=== PATIENT | female | born 1950 | race Caucasian/White ===

== ENCOUNTER 2017-02-18 13:10 | Day surgery (SDC) | payer MEDICARE ==
[~2017-02-18 13:10] MED LIST: Kenalog-40 IM ONE; Lactated Ringers IV ONE; Sensorcaine 0.25% 10 ML IJ ONE
--- NOTE | 2017-02-18 16:35 | XRAY ---
16 seconds of fluoroscopy was used in surgery for a right MBB L3-S1.
[2017-02-18] MEDS ORDERED: DIPRIVAN 200 MG/20 ML IV ONE (16:37)
--- NOTE | 2017-02-18 16:38 | XRAY ---
Indication: Right L3-S1 MBB. Intraoperative fluoroscopy was provided for 16 seconds. Single digital spot image submitted for interpretation demonstrates 4 posterior spinal needles with the tips projecting adjacent to the right L3-S1 superior facets. Incidental L4-S1 bilateral posterior spinal hardware. Correlate with intraoperative findings/report.
== END 2017-02-18 15:25 | disposition home or self-care (01) ==
LOC: SDC-PAIN 13:10
PROVIDERS: ATTEND Pain Medicine Interventional Pain Medicine
DX: M47.816 Spondylosis without myelopathy or radiculopathy, lumbar region (principal); M54.16 Radiculopathy, lumbar region; M48.06 Spinal stenosis, lumbar region; M96.1 Postlaminectomy syndrome, not elsewhere classified; M70.60 Trochanteric bursitis, unspecified hip
CPT/HCPCS: 64493; 64494; 64495; 72020; 77003; J2704; J3301

== ENCOUNTER 2017-02-26 18:57 | Emergency (ER) | payer MEDICARE ==
[2017-02-26] MEDS ORDERED: D50W 50 ml Abboject IV ONE (19:12)
--- NOTE | 2017-02-26 19:19 | ERPHSYRPT ---
- History of Present Illness Time Seen by Provider: 02/26/17 19:05 Source: patient, EMS Exam Limitations: no limitations Patient Subjective Stated Complaint: PT BROUGHT IN BY EMS PER EMS PT IS AN INSULIN DEPENDENT. DIABETIC AND UNSURE WHEN SHE TOOK HER LAST DOSE OF INSULIN. PER EMS PT FAMILY FOUND PT UNRESPONSIVE WITHA BAG OF SKITTLES BESIDE HER. PER EMS PT WAS INITIAL FSBS WAS 20 NO IV ACCESS GIVEN 1 MG OF GLUCAGON IM ONLY BROUGHT SUGAR UP TO 40 Triage Nursing Assessment: PT RESPONSIVE TO PAINFUL STIMULI ONLY DIAPHORETIC. 22 GI N RIGHT HAND BY James DALTON FSBS ON ARRIVAL 61 VERBAL. ORDER GIVEN TO GIVE 1 AMP OF D50 Physician History: REPORTEDLY PT'S FAMILY FOUND PT UNRESPONSIVE WITH A BAG OF SKITTLES BESIDE HER. EMS MEASURED A GLUCOSE OF 20, GAVE GLUCAGON 1MG IM AND IN ER GLUCOSE WAS 61. PT ORIENTED X3 AND ANSWERS QUESTIONS APPROPRIATELY FOR ME. PT DENIES CHEST PAIN, SHORTNESS OF AIR, FEVER, ABDOMINAL PAIN, VOMITING. PT STATES SHE HAS HAD A COUGH PRODUCTIVE OF CLEAR PHLEGM AND A RUNNY NOSE FOR THE PAST WEEK. Allergies/Adverse Reactions: No Known Drug Allergies Allergy (Unverified 05/26/16 10:23) Home Medications: Aspirin 81 gm Chew [Baby Aspirin 81 mg Chew] 81 mg PO DAILY 03/11/16 [ History] Biotin 10,000 mcg PO DAILY 03/11/16 [History] Cholecalciferol (Vitamin D3) [Vitamin D] 1,000 unit PO DAILY 03/11/16 [ History] Esomeprazole Magnesium [Nexium 24Hr] 22.3 mg PO DAILY 03/11/16 [History] Fenofibrate 160 mg PO DAILY 03/11/16 [History] Fluoxetine HCl [Prozac] 40 mg PO DAILY 03/11/16 [History] Levothyroxine Sodium 25 Mcg [Synthroid 25 Mcg] 25 mcg PO DAILY 03/11/16 [ History] Metoprolol Succinate 50 mg [Toprol Xl 50 MG] 50 mg PO DAILY 03/11/16 [ History] Gabapentin 1 - 3 tab PO TID 04/15/16 [History] Hydrocodone Bit/Acetaminophen [Maury 7.5-325 Tablet] 1 each PO Q6HPRN PRN [History] Glimepiride 4 mg [Amaryl 4 mg] 4 mg PO DAILY 12/30/16 [History] Insulin Lispro [Humalog] 0 unit SQ .PRN 12/30/16 [History] Hx Tetanus, Diphtheria Vaccination/Date Given: No (UNKNOWN) - Review of Systems Constitutional: No Fever Ears, Nose, & Throat: Nose Discharge Respiratory: Cough, No Dyspnea Cardiac: No Chest Pain Abdominal/Gastrointestinal: No Abdominal Pain, No Vomiting Neurological: Other (UNRESPONSIVENESS TODAY) All Other Systems: Reviewed and Negative - Past Medical History Pertinent Past Medical History: Yes Other Medical History: FIBRO,HTN,DIABETES - Past Surgical History Other Surgical History: UNKNOWN - Social History Smoking Status: Unknown if ever smoked Drug Use: none - Female History Hx Last Menstrual Period: NA - Nursing Vital Signs Nursing Vital Signs: Initial Vital Signs Pulse Rate 62 Respiratory Rate 15 Blood Pressure [] 126/71 Pain Intensity 0 - Physical Exam General Appearance: alert Eye Exam: PERRL/EOMI Ears, Nose, Throat Exam: TMs normal, moist mucous membranes, pharyngeal erythema Neck Exam: normal inspection Respiratory Exam: rhonchi (SCATTERED), wheezing (SCATTERED) Cardiovascular Exam: normal heart sounds Gastrointestinal/Abdomen Exam: soft, normal bowel sounds Back Exam: normal range of motion Extremity Exam: normal inspection, No pedal edema Neurologic Exam: alert, oriented x 3, cooperative, sensation nml, No motor deficits Skin Exam: warm, dry SpO2 Interpretation: normal SpO2: 98 Oxygen Delivery: Room Air - Course Nursing assessment & vital signs reviewed: Yes EKG Interpreted by Me: RATE (57), Sinus Mega, NORMAL AXIS, NORMAL INTERVALS - Radiology Exams Chest X-ray Interpretation: Interpreted by me (SMALL RLL INFILTRATE) Ordered Tests: Active Orders 24 hr Category Date Time Status Accucheck STAT Care 02/26/17 22:10 Active Accounts Payable Manager STAT Care 02/26/17 20:16 Active EKG-ER Only STAT Care 02/26/17 20:16 Active IV Insertion STAT Care 02/26/17 19:12 Active Oxygen-ED Only NASAL CANNULA 2 lpm Care 02/26/17 20:16 Active Pulse Oximetry (ED) STAT Care 02/26/17 20:16 Active CHEST 1 VIEW (PORTABLE) Stat Exams 02/26/17 19:12 Taken BLOOD CULTURE Stat Lab 02/26/17 20:30 Received CBC W DIFF Stat Lab 02/26/17 20:00 Completed CMP Stat Lab 02/26/17 20:00 Completed CULTURE, THROAT Stat Lab 02/26/17 20:26 Received MAG [MAGNESIUM] Stat Lab 02/26/17 20:00 Completed STREP SCREEN-BETA A Stat Lab 02/26/17 20:26 Completed UA W/ MICROSCOPIC Stat Lab 02/26/17 20:50 Completed Respiratory Nebulizer STAT RT 02/26/17 19:21 Completed Medication Summary Generic Name Dose Route Start Last Admin Trade Name Freq PRN Reason Stop Dose Admin Azithromycin 250 mls @ 125 mls/hr 02/26/17 20:16 02/26/17 20:56 Zithromax 500 Mg/ 250 Ml Nacl Premix IV 02/26/17 22:15 125 mls/hr STAT ONE Administration Sodium Chloride 1,000 mls @ 100 mls/hr 02/26/17 20:30 02/26/17 20:29 Sodium Chloride 0.9% 1000 Ml IV 03/28/17 20:29 100 mls/hr .Q10H KAVITHA Administration Magnesium Oxide 400 mg 02/27/17 10:00 Mag-Ox 400 PO 03/29/17 09:59 BID KAVITHA Discontinued Medications Generic Name Dose Route Start Last Admin Trade Name Freq PRN Reason Stop Dose Admin Albuterol Sulfate 2.5 mg 02/26/17 19:20 02/26/17 19:37 Proventil 2.5 Mg/3 Ml Neb IH 02/26/17 19:21 2.5 mg STAT ONE Administration Albuterol Sulfate Confirm 02/26/17 19:34 Proventil 2.5 Mg/3 Ml Neb Administered 02/26/17 19:35 Dose 2.5 mg IH .STK-MED ONE Dextrose 50 ml 02/26/17 19:12 02/26/17 19:17 D50w 50 Ml Abboject IV 02/26/17 19:13 50 ml STAT ONE Administration Ceftriaxone Sodium/Dextrose 50 mls @ 100 mls/hr 02/26/17 20:16 02/26/17 20:32 Rocephin 1 Gm-D5w 50 Ml Bag IV 02/26/17 20:45 100 mls/hr STAT ONE Administration Azithromycin Confirm 02/26/17 20:26 Zithromax 500 Mg/ 250 Ml Nacl Premix Administered 02/26/17 20:27 Dose 250 mls @ ud IV .STK-MED ONE Ceftriaxone Sodium/Dextrose Confirm 02/26/17 20:26 Rocephin 1 Gm-D5w 50 Ml Bag Administered 02/26/17 20:27 Dose 50 mls @ ud IV .STK-MED ONE Lab/Rad Data: Laboratory Result Diagrams 02/26/17 20:00 02/26/17 20:00 Laboratory Results 02/26/17 02/26/17 02/26/17 Range/Units 20:50 20:26 20:26 WBC (4.0-10.5) K/mm3 RBC (4.1-5.4) M/mm3 Hgb (12.0-16.0) gm/dl Hct (35-47) % MCV (78-100) fl MCH (26-32) pg MCHC (32-36) g/dl RDW (11.5-14.0) % Plt Count (150-450) K/mm3 MPV (6-9.5) fl Gran % (36.0-66.0) % Lymphocytes % (24.0-44.0) % Monocytes % (0.0-12.0) % Eosinophils % (0.00-5.0) % Basophils % (0.0-0.4) % Basophils # (0-0.4) Sodium (136-145) mEq/L Potassium (3.5-5.1) mEq/L Chloride (98-107) mEq/L Carbon Dioxide (21-32) mEq/L Anion Gap (5-15) MEQ/L BUN (9-20) mg/dL Creatinine (0.55-1.30) mg/dl Estimated GFR ML/MIN Glucose (70-110) MG/DL Calcium (8.5-10.1) mg/dL Magnesium (1.8-2.4) mg/dL Total Bilirubin (0.2-1.0) mg/dL AST (15-37) U/L ALT (12-78) U/L Alkaline Phosphatase (46-116) U/L Serum Total Protein (6.4-8.2) gm/dL Albumin (3.4-5.0) g/dL Ur Collection Type CLEAN CATCH Urine Color YELLOW (YELLOW) Urine Appearance CLEAR (CLEAR) Urine pH 5.5 (5-6) Ur Specific [place] 1.015 (1.005-1.025) Urine Protein NEGATIVE (Negative) Urine Glucose (UA) 100 (NEGATIVE) mg/dL Urine Ketones NEGATIVE (NEGATIVE) Urine Nitrite NEGATIVE (NEGATIVE) Urine Bilirubin NEGATIVE (NEGATIVE) Urine Urobilinogen 1 (0-1) mg/dL Urine WBC (Auto) TRACE (NEGATIVE) Urine RBC (Auto) NEGATIVE (0-5) Malik/ul Urine Microscopic WBC 0-2 (0-5) /HPF Ur Epithelial Cells FEW (FEW) /HPF Urine Bacteria RARE (NEGATIVE) /HPF Influenza Type A Ag NEGATIVE (NEGATIVE) Influenza Type B Ag NEGATIVE (NEGATIVE) RSV (PCR) POSITIVE (Negative) Streptococcus Screen NEGATIVE (Negative) Specimen Received 02/26/1702/26/17 02/26/17 02/26/17 Range/Units 20:00 20:00 20:00 WBC 10.6 H (4.0-10.5) K/mm3 RBC 4.37 (4.1-5.4) M/mm3 Hgb 13.0 (12.0-16.0) gm/dl Hct 40.7 (35-47) % MCV 93.1 (78-100) fl MCH 29.7 (26-32) pg MCHC 31.9 L (32-36) g/dl RDW 13.8 (11.5-14.0) % Plt Count 258 (150-450) K/mm3 MPV 9.8 H (6-9.5) fl Gran % 56.2 (36.0-66.0) % Lymphocytes % 33.7 (24.0-44.0) % Monocytes % 6.4 (0.0-12.0) % Eosinophils % 3.1 (0.00-5.0) % Basophils % 0.6 (0.0-0.4) % Basophils # 0.06 (0-0.4) Sodium 142 (136-145) mEq/L Potassium 4.1 (3.5-5.1) mEq/L Chloride 106 (98-107) mEq/L Carbon Dioxide 25.4 (21-32) mEq/L Anion Gap 14.5 (5-15) MEQ/L BUN 32 H (9-20) mg/dL Creatinine 1.91 H (0.55-1.30) mg/dl Estimated GFR 28 ML/MIN Glucose 57 L (70-110) MG/DL Calcium 9.0 (8.5-10.1) mg/dL Magnesium 1.6 L (1.8-2.4) mg/dL Total Bilirubin 0.7 (0.2-1.0) mg/dL AST 34 (15-37) U/L ALT 22 (12-78) U/L Alkaline Phosphatase 129 H (46-116) U/L Serum Total Protein 7.6 (6.4-8.2) gm/dL Albumin 3.7 (3.4-5.0) g/dL Ur Collection Type Urine Color (YELLOW) Urine Appearance (CLEAR) Urine pH (5-6) Ur Specific [place] (1.005-1.025) Urine Protein (Negative) Urine Glucose (UA) (NEGATIVE) mg/dL Urine Ketones (NEGATIVE) Urine Nitrite (NEGATIVE) Urine Bilirubin (NEGATIVE) Urine Urobilinogen (0-1) mg/dL Urine WBC (Auto) (NEGATIVE) Urine RBC (Auto) (0-5) Malik/ul Urine Microscopic WBC (0-5) /HPF Ur Epithelial Cells (FEW) /HPF Urine Bacteria (NEGATIVE) /HPF Influenza Type A Ag (NEGATIVE) Influenza Type B Ag (NEGATIVE) RSV (PCR) (Negative) Streptococcus Screen (Negative) Specimen Received - Progress Progress Note: 02/26/17 22:13 PT REFUSES HOSPITALIZATION. - Departure Time of Disposition: 22:16 Departure Disposition: Home Clinical Impression: RLL PNEUMONIA, HYPOGLYCEMIA, HYPOMAGNESEMIA, PHARYNGITIS, DM, HTN, FIBROMYALGIA Condition: Fair Critical Care Time: No Referrals: LOREN DELVALLE [Primary Care Provider] - Instructions: Hypoglycemia, Pneumonia -- Adult Additional Instructions: FOLLOW UP WITH PRIVATE DOCTOR TOMORROW. Prescriptions: Guaifenesin/Codeine Phosphate [Robitussin AC Syrup] 10 ml PO Q4H PRN PRN #120 ml PRN Reason: Cough Azithromycin 250 mg [Zithromax 250 MG TABLET] 250 mg PO ZPACK #6 tablet Cefdinir [Omnicef 300 mg] 300 mg PO BID #20 capsule
[2017-02-26] MEDS ORDERED: PROVENTIL 2.5 MG/3 ML NEB IH ONE ×2 (19:20→19:34)
[2017-02-26] MEDS ORDERED: ROCEPHIN 1 Gm-D5w 50 ml Bag** 50 ML IV ONE ×2 (20:16→20:26)
[2017-02-26] MEDS ORDERED: Zithromax 500 MG/ 250 ML NaCl Premix 250 ML IV ONE ×2 (20:16→20:26)
[2017-02-26] MEDS ORDERED: Sodium Chloride 0.9% 1000 ML 1,000 ML ONE (20:26)
[2017-02-26 20:30] LABS: BASOPHIL % 0.6 % (0.0-0.4); Eosinophil % 3.1 % (0.00-5.0); Granulocytes % 56.2 % (36.0-66.0); Lymphocytes % 33.7 % (24.0-44.0); Mean Cell Volume 93.1 fl (78-100); Mean Corpuscular Hemoglobin 29.7 pg (26-32); Mean Platelet Volume 9.8 fl (6-9.5); Monocytes % 6.4 % (0.0-12.0); Platelet Count 258 K/mm3 (150-450); Red Blood Count 4.37 M/mm3 (4.1-5.4); Red Cell Distribution Width 13.8 % (11.5-14.0); White Blood Count 10.6 K/mm3 (4.0-10.5)
[2017-02-26] MEDS ORDERED: Sodium Chloride 0.9% 1000 ML 1,000 ML IV SCH (20:30)
[2017-02-26 20:41] LABS: ALBUMIN 3.7 g/dL (3.4-5.0); ANION GAP 14.5 MEQ/L (5-15); BILIRUBIN,TOTAL 0.7 mg/dL (0.2-1.0); Carbon Dioxide 25.4 mEq/L (21-32); Potassium 4.1 mEq/L (3.5-5.1); Total Protein 7.6 gm/dL (6.4-8.2)
[2017-02-26 20:58] LABS: Bacteria RARE /HPF (NEGATIVE); COMPLETE URINE MICROSCOPIC? YES; Collection Type CLEAN CATCH; Epithelial Cells FEW /HPF (FEW); Ph 5.5 (5-6); WBC 0-2 /HPF (0-5)
[2017-02-26 21:03] VITALS: O2SAT 98
[2017-02-26] MEDS ORDERED: MAG-OX 400 ONE (22:12)
[2017-02-26 22:17] VITALS: BP 104/66; PULSE 77
--- NOTE | 2017-02-27 09:29 | XRAY ---
Indication: Cough. Low blood sugar. Comparison: None Portable chest demonstrates right base infiltrate versus atelectasis. No consolidation or large effusion. Heart is not enlarged for AP portable technique. Bony thorax intact with mild osteopenia, degenerative changes, and scoliosis. Impression: Right base infiltrate/atelectasis. Correlate clinically.
[2017-02-27] MEDS ORDERED: MAG-OX 400 PO SCH (10:00)
== END 2017-02-26 23:31 | disposition home or self-care (01) ==
LOC: ED 18:57
DX: J18.9 Pneumonia, unspecified organism (principal); E16.2 Hypoglycemia, unspecified; E83.42 Hypomagnesemia; J02.9 Acute pharyngitis, unspecified; E11.9 Type 2 diabetes mellitus without complications; I10 Essential (primary) hypertension; M79.7 Fibromyalgia; Z79.899 Other long term (current) drug therapy; Z79.4 Long term (current) use of insulin
CPT/HCPCS: 36000; 36415; 71010; 80053; 81000; 82962; 83735; 85025; 87040; 87070; 87430; 87631; 93005; 93041; 94640; 96360; 96361; 96365; 96366; 96367; 96374; 99285; J0456; J0696; A9270-GY

== ENCOUNTER 2017-04-29 08:07 | Day surgery (SDC) | payer MEDICARE ==
[~2017-04-29 08:07] MED LIST changes: +Lactated Ringers 1,000 ML IV ONE; -Lactated Ringers IV ONE
[2017-04-29] MEDS ORDERED: DIPRIVAN 200 MG/20 ML IV ONE (10:00)
--- NOTE | 2017-04-29 17:19 | XRAY ---
20 seconds fluoroscopy time in surgery for right side L2-5 MBB.
--- NOTE | 2017-05-01 02:34 | XRAY ---
Indication: Right L2-L5 MBB. Intraoperative fluoroscopy was provided for 20 seconds. Single digital spot image submitted for interpretation demonstrates 4 posterior spinal needles with the tips projected over the expected course of the right L2-L5 nerve roots. Correlate with intraoperative findings/report. There is incidental note of posterior L4-S1 posterior fusion device.
== END 2017-04-29 12:30 | disposition home or self-care (01) ==
LOC: SDC-PAIN 08:07
PROVIDERS: ATTEND Pain Medicine Interventional Pain Medicine
DX: M54.16 Radiculopathy, lumbar region (principal); M48.06 Spinal stenosis, lumbar region; M96.1 Postlaminectomy syndrome, not elsewhere classified; M47.816 Spondylosis without myelopathy or radiculopathy, lumbar region
CPT/HCPCS: 64493; 64494; 64495; 72020; 77003; J2704; J3301

== ENCOUNTER 2018-02-17 09:07 | Day surgery (SDC) | payer MEDICARE ==
[2018-02-17] MEDS ORDERED: Xylocaine-Mpf 2 ML IJ ONE (09:08)
[2018-02-17] MEDS ORDERED: Lactated Ringers 1,000 ML IV ONE (09:08)
[2018-02-17] MEDS ORDERED: Marcaine 0.5% SDV 10 ML IJ ONE (09:08)
[2018-02-17] MEDS ORDERED: DIPRIVAN 200 MG/20 ML IV ONE (09:08)
[2018-02-17] MEDS ORDERED: Ketamine HCl 50 MG/ML IV ONE (09:08)
[2018-02-17] MEDS ORDERED: Xylocaine-Mpf 2% 5 Ml Vial IJ ONE (09:08)
[2018-02-17] MEDS ORDERED: Xylocaine 1% Vial 30 ML PF IJ ONE (10:30)
--- NOTE | 2018-02-17 11:13 | XRAY ---
34 seconds fluoroscopy time in surgery for right L3-4, L4-5 RFA.
--- NOTE | 2018-02-17 11:15 | XRAY ---
Indication: Right L3-L4 and L4-L5 RFA. Intraoperative fluoroscopy was provided for 34 seconds. 2 digital spot images submitted for interpretation demonstrates posterior spinal needle tips projecting over the right L2/L3/L4 pedicles. Correlate with intraoperative findings/report.
--- NOTE | 2018-02-18 09:58 | OP ---
DATE OF PROCEDURE: 02/17/2018 1013 SURGEON: Swati Erazo D.O. PREOPERATIVE DIAGNOSIS: Degenerative lumbosacral spine disease, spondylosis, low back pain. POSTOPERATIVE DIAGNOSIS: Degenerative lumbosacral spine disease, spondylosis, low back pain. PROCEDURES PERFORMED: Right L5, L4, L3 medial branch radiofrequency ablation under fluoroscopic guidance. DESCRIPTION OF PROCEDURE: The patient was taken to the operating room and laid in the prone position on the table. The skin over the injection site was prepped and draped in sterile fashion. Under fluoroscopy bony anatomy of the target injection site was visualized. Induction agent was given as per anesthesia while vital signs were monitored. Local anesthetic agent was introduced to anesthetize the skin and the subcutaneous tissue through the injection site. Under fluoroscopic guidance a standard size spinal needle with cannula was advanced into the target medial branch nerve as per standard protocol. Before the radiofrequency ablation motor and sensory nerve testing was conducted as per protocol. Under the safety guidance which ensured no motor nerves being involved, right L5, L4, L3 medial branch radiofrequency ablation was conducted at 80 degrees Celsius for 90 seconds as per standard protocol. After the spinal needle with the cannula was removed the skin was cleansed with alcohol and then a bandage was applied. No complications or adverse occurrences were observed. After the procedure the residual pain level 0 out of 10. There was no muscle weakness after the procedure. The patient was ambulating well. The patient will be followed up within 10 days after the procedure for re-evaluation.
== END 2018-02-17 11:00 | disposition home or self-care (01) ==
LOC: SDC-PAIN 09:07
PROVIDERS: ATTEND Internal Medicine
DX: M54.6 Pain in thoracic spine (principal); M96.1 Postlaminectomy syndrome, not elsewhere classified; M47.816 Spondylosis without myelopathy or radiculopathy, lumbar region; Z79.891 Long term (current) use of opiate analgesic
CPT/HCPCS: 64635; 64636; 72020; 76000; J2001; J2704

== ENCOUNTER 2018-03-31 07:43 | Day surgery (SDC) | payer MEDICARE ==
[2018-03-31] MEDS ORDERED: Sodium Chloride 0.9(Preservative Free) 10 ML IJ ONE (07:44)
[2018-03-31] MEDS ORDERED: Marcaine 0.5% SDV 10 ML IJ ONE (07:44)
[2018-03-31] MEDS ORDERED: DIPRIVAN 200 MG/20 ML IV ONE (07:44)
[2018-03-31] MEDS ORDERED: LIDOCAINE HCL 1% AMPUL 5 ML IJ ONE (07:44)
[2018-03-31] MEDS ORDERED: Lactated Ringers 1,000 ML IV ONE (10:27)
--- NOTE | 2018-03-31 11:15 | XRAY ---
Indication: Left L3 and L5 MBB. Intraoperative fluoroscopy was provided for 1 minute 9 seconds. 3 digital spot images submitted for interpretation demonstrates posterior spinal needle tips projecting over the expected course of the left L3 and L5 nerve roots. Correlate with intraoperative findings/report.
--- NOTE | 2018-04-01 09:41 | OP ---
DATE OF PROCEDURE: 03/31/2018 0855 SURGEON: Swati Erazo D.O. PREOPERATIVE DIAGNOSIS: Degenerative lumbar spine disease, spondylosis, low back pain. POSTOPERATIVE DIAGNOSIS: Degenerative lumbar spine disease, spondylosis, low back pain. PROCEDURE PERFORMED: Left L5, L3 medial branch block under fluoroscopic guidance. DESCRIPTION OF THE PROCEDURE: The patient was taken to the operating room and placed in the prone position on the table. Skin at the injection site was prepped and draped in sterile fashion. Under fluoroscopy, bony anatomy of the targeted injection site was visualized. Induction agent was given as per anesthesia while vital signs were monitored. Local anesthetic agent of 0.5 cc of 1% lidocaine preservative free was introduced to anesthetize the skin and the subcutaneous tissue through the injection site. Under fluoroscopic guidance, a #20 gauge standard spinal needle was advanced into the target medial branch through the oblique approach. The preservative free 0.5 cc of 1% lidocaine and 0.5 cc of 0.25% -0.5% Marcaine were injected into each of the targeted medial branch nerve. After the needle was being removed, the skin was cleansed with alcohol and then a bandage was applied. No complications or adverse consequences were observed. The patient was returned to the holding area until stabilized before discharge to home. Preoperative pain level is 7 out of 10 and postoperative pain level is 0 out of 10. NOTE: The patient was scheduled initially for left L5, L4, L3 medial branch block. However, because of the implantation of the screw hardware blockage of needle access to L4 medial branch, therefore only left L5, L3 medial branch block were completed. The patient will be followed up within ten days after the injection for re-evaluation.
== END 2018-03-31 09:50 | disposition home or self-care (01) ==
LOC: SDC-PAIN 07:43
PROVIDERS: ATTEND Internal Medicine
DX: M54.6 Pain in thoracic spine (principal); M54.5 Low back pain; M46.96 Unspecified inflammatory spondylopathy, lumbar region; M47.816 Spondylosis without myelopathy or radiculopathy, lumbar region; Z79.891 Long term (current) use of opiate analgesic
CPT/HCPCS: 64493; 64494; 72020; 77003; 82962; J2704

== ENCOUNTER 2018-04-28 07:53 | Day surgery (SDC) | payer MEDICARE ==
[2018-04-28] MEDS ORDERED: DIPRIVAN 200 MG/20 ML IV ONE (07:54)
[2018-04-28] MEDS ORDERED: Marcaine Mpf 0.5% Vial 30 Ml IJ ONE (07:54)
[2018-04-28] MEDS ORDERED: XYLOCAINE-MPF 1% 5ML SDV IJ ONE (07:54)
[2018-04-28] MEDS ORDERED: Lactated Ringers 1,000 ML IV ONE (11:53)
--- NOTE | 2018-04-28 18:41 | XRAY ---
Exam: Single view spine from 04/28/2018. Comparison: Single view spine from 03/31/2018. Indication: Left L4-S1 MBB. Findings: 1 minute 16 seconds of fluoroscopy time was utilized using the C-arm. I again note posterior surgical fusion of L4-S1 with paired interpedicular rods and 6 pedicle screws. A transverse metallic band joins the rods between L4 and L5. This is unchanged. 5 PA films were obtained. A spinal needle tip is seen projected over the lateral margin of the left L4 and L5 pedicles. Please correlate with intraoperative findings/report.
--- NOTE | 2018-04-29 08:05 | XRAY ---
1 minute and 16 seconds fluoroscopy time in surgery for left L4-S1 MBB.
--- NOTE | 2018-04-29 08:39 | OP ---
AMENDED REPORT: DATE OF PROCEDURE: 04/28/2018 1127 SURGEON: Swati Erazo D.O. PREOPERATIVE DIAGNOSIS: Degenerative lumbar spine disease, spondylosis, low back pain. POSTOPERATIVE DIAGNOSIS: Degenerative lumbar spine disease, spondylosis, low back pain. PROCEDURE PERFORMED: Left L5, L4, L3 medial branch block under fluoroscopic guidance. DESCRIPTION OF THE PROCEDURE: The patient was taken to the operating room and placed in the prone position on the table. Skin at the injection site was prepped and draped in sterile fashion. Under fluoroscopy, bony anatomy of the targeted injection site was visualized. Induction agent was given as per anesthesia while vital signs were monitored. The medication used for this procedure is preservative-free 0.5 cc of 0.5% Marcaine 3 cc. Local anesthetic agent used 10 cc of 1% lidocaine preservative-free. Under fluoroscopic guidance, a #20 gauge standard spinal needle was advanced into the target medial branch through the oblique approach. After the needle was being removed, the skin was cleansed with alcohol and then a bandage was applied. No complications or adverse consequences were observed. The patient was returned to the holding area until stabilized before discharge to home. Preoperative pain level is 10 out of 10 and the postoperative pain level is 0 out of 10. The patient will be followed up within ten days after the injection for re-evaluation.
== END 2018-04-28 12:15 | disposition home or self-care (01) ==
LOC: SDC-PAIN 07:53
PROVIDERS: ATTEND Internal Medicine
DX: M54.6 Pain in thoracic spine (principal); M54.5 Low back pain; M46.96 Unspecified inflammatory spondylopathy, lumbar region; M96.1 Postlaminectomy syndrome, not elsewhere classified; M25.552 Pain in left hip; M47.816 Spondylosis without myelopathy or radiculopathy, lumbar region; Z79.891 Long term (current) use of opiate analgesic
CPT/HCPCS: 64493; 64494; 64495; 72020; 77003; 82962; J2704

== ENCOUNTER 2019-04-06 08:00 | Day surgery (SDC) | payer MEDICARE ==
[2019-04-06] MEDS ORDERED: Ketamine HCl 50 MG/ML IV ONE (08:01)
[2019-04-06] MEDS ORDERED: XYLOCAINE 1% HCL 20 ML MDV IJ ONE (08:01)
[2019-04-06] MEDS ORDERED: Depo-Medrol 40 MG/ML IM ONE (08:01)
[2019-04-06] MEDS ORDERED: Xylocaine 1% Vial 30 ML PF IJ ONE ×2 (08:01)
[2019-04-06] MEDS ORDERED: Dextrose 5%/Water IV Soln. 1000 ML 1,000 ML IV ONE (08:01)
[2019-04-06] MEDS ORDERED: Marcaine 0.5% SDV 10 ML IJ ONE (08:01)
[2019-04-06] MEDS ORDERED: DIPRIVAN 200 MG/20 ML IV ONE (08:01)
--- NOTE | 2019-04-06 11:25 | XRAY ---
51 seconds fluoroscopy time in surgery for left L3-S1 RFA.
--- NOTE | 2019-04-06 11:25 | XRAY ---
Indication: Left L4-S1 RFA. Intraoperative fluoroscopy was provided for 51 seconds. 2 digital spot images submitted for interpretation demonstrates posterior needle tips projecting over the expected course of the left L4-S1 nerve roots. Correlate with intraoperative findings/report. Incidental bilateral L3-S1 posterior spinal hardware.
[2019-04-06] MEDS ORDERED: Lactated Ringers 1,000 ML IV ONE (13:46)
== END 2019-04-06 10:45 | disposition home or self-care (01) ==
LOC: SDC-PAIN 08:00
PROVIDERS: ATTEND Psychiatry & Neurology Pain Medicine
DX: M47.816 Spondylosis without myelopathy or radiculopathy, lumbar region (principal); E11.9 Type 2 diabetes mellitus without complications; I10 Essential (primary) hypertension; K21.9 Gastro-esophageal reflux disease without esophagitis; E78.5 Hyperlipidemia, unspecified; J44.9 Chronic obstructive pulmonary disease, unspecified; Z79.899 Other long term (current) drug therapy
CPT/HCPCS: 36415; 64635; 64636; 72100; 77002; 82947; 82962; J1030; J2001; J2704